=== PATIENT | female | born 1990 | race Caucasian/White ===

== ENCOUNTER 2021-11-13 13:44 | Outpatient (CLI) | payer BC, SELFPAY ==
--- NOTE | 2021-11-13 14:00 | CRLHL7_ITS ---
For Patients: As a result of the Century Cures Act, medical imaging exams and procedure reports are released immediately into your electronic medical record. You may view this report before your referring provider. If you have questions, please contact your health care provider. INDICATION: Evaluate anatomy. COMPARISON: 08.20.21 TECHNIQUE: Real time thomas scale imaging of the fetus was performed as well as color Doppler analysis of the umbilical vessels. FINDINGS: Sonographic imaging demonstrates a single living intrauterine gestation. Fetus demonstrates a regular cardiac rate of 135 beats per minute. Fetus has a variable position. The placenta lies left anterior/posterior without evidence of placenta previa. The edge of the placenta is located 9.0 cm from the internal cervical os. Amniotic fluid volume appears normal. Single deepest vertical pocket: 6.8 cm. The cervix is closed and measures 4.4 cm in length. The composite ultrasound gestational age is calculated at 22 weeks 1 day with an estimated sonographic due date of 03/18/2022. The estimated weight is 465 grams which lies at the 94th %. The following biometric measurements were obtained: Biparietal diameter: 5.4 cm/22 weeks 3 days 95th% Head circumference: 19.8 cm/22 weeks 0 days 86th% Abdominal circumference: 17.9 cm/22 weeks 6 days 93rd% Femur length: 3.5 cm/20 weeks 6 days 42nd% The HC/AC ratio measures: 1.11 range (1.05-1.23) On anatomic survey, there is a normal appearance of the cerebral ventricles, cavum septi pellucidi, cisterna magna and cerebellum. The nose, lips, and facial profile appear normal. The cervical, thoracic and lumbar spine are well visualized and appear normal. There is a normal four-chamber heart view and the left and right ventricular outflow tracts appear normal. The diaphragm and stomach appear normal. The kidneys and bladder also appear normal. There is a normal three-vessel cord and cord insertion site. The four extremities appear normal. IMPRESSION: Normal anatomic survey. Sonographic gestational age 22 weeks 1 day and sonographic due date of 03/18/2022. Sonographic age is 9 days ahead of the clinical age. Estimated weight 94th percentile. Abdominal circumference 93rd percentile. Dictated by Jorge Taylor MD @ 11/13/2021 3:31:12 PM (Electronically Signed)
== END 2021-11-13 13:45 | disposition home or self-care (01) ==
LOC: US 13:45
PROVIDERS: PCP Family Medicine; Visit Provider Advanced Practice Midwife
DX: Z34.92 Encounter for supervision of normal pregnancy, unspecified, second trimester (principal); Z3A.22 22 weeks gestation of pregnancy
CPT/HCPCS: 76805

== ENCOUNTER 2022-01-08 10:01 | Outpatient (CLI) | payer BC, SELFPAY ==
[2022-01-09 20:38] LABS: Rapid Plasma Reagin (RPR) Non Reactive (Non Reactive)
== END 2022-01-08 10:02 | disposition home or self-care (01) ==
PROVIDERS: PCP Family Medicine; Visit Provider Advanced Practice Midwife
DX: Z34.80 Encounter for supervision of other normal pregnancy, unspecified trimester (principal)
CPT/HCPCS: 86592

== ENCOUNTER 2022-02-24 14:00 | Outpatient (CLI) | payer MEDICAID, SELFPAY ==
[2022-02-24 15:02] LABS: Total Protein Urine 13 mg/dL
[2022-02-24 15:05] LABS: Creatinine Urine 31.9 mg/dL
[2022-02-24 16:37] LABS: Alanine Aminotransferase* 21 U/L (4-35); Aspartate Amino Transferase* 35 U/L (12-35); Blood Urea Nitrogen* 5 mg/dL (5-24); Creatinine* 0.5 mg/dL (0.5-1.5); Estimated Glomerular Filt Rate 128 ml/min; Uric Acid* 3.7 mg/dL (2.2-8.4)
[2022-02-25 12:16] LABS: Strep B DNA Probe NEGATIVE (Negative)
[2022-02-26 09:53] LABS: Strep B Pen/Amox Allergy No
== END 2022-02-24 14:01 | disposition home or self-care (01) ==
PROVIDERS: PCP Family Medicine; Visit Provider Advanced Practice Midwife
DX: O09.293 Supervision of pregnancy with other poor reproductive or obstetric history, third trimester (principal); Z87.51 Personal history of pre-term labor
CPT/HCPCS: 76816; 82565; 82570; 84156; 84450; 84460; 84520; 84550; 87081; 87653

== ENCOUNTER 2022-02-26 20:01 | Outpatient (CLI) | payer MEDICAID, SELFPAY | END 2022-02-26 20:02 | disposition home or self-care (01) | LOC: NFLDREF 03-08 14:52 | PROVIDERS: PCP Family Medicine; Visit Provider Advanced Practice Midwife | DX: O36.63X0 Maternal care for excessive fetal growth, third trimester, not applicable or unspecified (principal) | CPT/HCPCS: 84156 ==

== ENCOUNTER 2022-03-01 09:54 | Outpatient (CLI) | payer MEDICAID, SELFPAY ==
[2022-03-01] VITALS (15 sets, daily range): BP systolic 111–120; BP diastolic 56–61; PULSE 71–97; RESP 16; TEMP 37.2; O2SAT 98–99
[2022-03-01 11:30] LABS: Hematocrit 33.3 % (33.0-51.0); Hemoglobin* 11.1 gm/dL (12.0-16.0); Mean Corpuscular HGB Conc 33 gm/dL (32-36); Mean Corpuscular Hemoglobin 29 pg (26-34); Mean Corpuscular Volume 87 fL (80-100); Platelet Count* 183 K/uL (140-440); Red Blood Count 3.82 m/uL (4.00-5.20); White Blood Count* 7.56 K/uL (4.50-11.00)
[2022-03-01 11:45] LABS: Slide Review Reflex No
[2022-03-01 11:49] LABS: Aspartate Amino Transferase* 35 U/L (12-35); Creatinine* 0.4 mg/dL (0.5-1.5); Estimated Glomerular Filt Rate 135 ml/min
[2022-03-01 11:50] LABS: Total Protein Urine 9 mg/dL
[2022-03-01 11:50] LABS: Alanine Aminotransferase* 24 U/L (4-35); Blood Urea Nitrogen* 4 mg/dL (5-24)
[2022-03-01 11:51] LABS: Creatinine Urine 117.6 mg/dL
--- NOTE | 2022-03-03 16:54 | PC.OBNST ---
NST Note NST Note Start: 03/01/22 10:17 Freq: ONCE Status: Discharge Protocol: Document 03/01/22 16:50 MMB (Rec: 03/03/22 16:54 MMB [id number]) NST Note 4 Para (# of births) 3 EDC 03/27/22 Gestational Age In Weeks & Days 36 Weeks & 4 Days High Risk Factors History of Labor/ Delivery Patient Presented with Complaint(s) of Headache,Other Other Complaints Right upper quadrant pain Reactive Yes Appropriate for Gestational Age Yes RN Candice Grande RN Date 03/01/22 Reactive Yes Appropriate for Gestational Age Yes GEOVANY Morris RN Date 03/01/22 OB NST charge Yes Complete NST Note via Write Note Yes The provider's electronic signature indicates the NST is reactive/appropriate for gestational age. *Note to provider: If an addendum is required, open the patient's chart and click on the note under the Nurse/Allied Health tab.
== END 2022-03-01 12:35 | disposition home or self-care (01) ==
LOC: OB OUT 09:55 → OB 09:56
PROVIDERS: PCP Family Medicine; Visit Provider Advanced Practice Midwife
DX: Z34.93 Encounter for supervision of normal pregnancy, unspecified, third trimester (principal)
CPT/HCPCS: 36415; 59025; 82565; 82570; 84156; 84450; 84460; 84520; 85027; 99213

== ENCOUNTER 2022-03-22 07:00 | Inpatient (IN) | payer OTHER, SELFPAY ==
[2022-03-22] VITALS (10 sets, daily range): BP systolic 111–131; BP diastolic 56–65; PULSE 62–97; RESP 16–18; TEMP 36.6–37.1; BMI 33.1
[2022-03-22 08:16] LABS: SARS PCR* Negative SARS-CoV-2 (Negative)
--- NOTE | 2022-03-22 08:36 | P.LDBA_ITS ---
Subjective History of Present Illness Time Seen by Provider: 08:38 Date Seen: 03/22/22 Narrative: Nathalia is being admitted to Labor and Delivery for IOL r/t hx of vacuum delivery of 7lb 8oz baby and current suspected macrosomia, EFW 97%ile at 36w. She is a 31 year old at 39 2/7 weeks gestation. Her full history and physical was dictated by Renay Yanes CNM on 03/05/22. Please see this for details. Nathalia is supported by her Can. Nathalia had epidurals with her last 3 births, but reports that they did not work well. She is planning for a waterbirth, but open to an epidural if needed. Discussed having a safe word that Can will know in case she would like to have the epidural at some point. Encouraged ambulation, position changes, and labor warm up to promote optimal positioning and physiologic labor and . Discussed options for cervidil or cytotec induction, pt agreeable to cytotec. Questions elicited and answered to pt satisfaction. OB Problem List: Blood type: O positive [facility]. History of IUGR and HELLP 1st Baseline pre E labs: All normal, pr/cr ratio: .24 81 mg aspirin starting at 12 weeks 2. History of vacuum assisted vaginal delivery 3rd . 7 lb 8 oz. Baby stuck and heart deceleration (Other babies 3 lb & 6 lbs) 3. History of at 35 weeks w/ 1st baby 4. 20 week Anatomy scan - 94%ile 36 wk growth ordered: EFW over 97%. 7 lb 11 oz Consider 39 week IOL (See 30 week note) COVID: declines FLU: declines 01/08/2022. Tdap: OB - H&P: Exam Physical Exam: Vital signs: Temp Pulse Resp BP 98 F 75 16 121/56 L 03/22/22 07:20 03/22/22 07:20 03/22/22 07:20 03/22/22 07:20 Narrative: VSS, afebrile General Appearance:? Calm, cooperative. ?No acute distress. ? Psychiatric Exam: Alert and oriented, appropriate affect Abdomen: Gravid Ctx: Irregular. Mild FHTs: ?Baseline: 125 ? Variability: Moderate ? Accels: Present ? ?Decels: ?Absent SVE: 1cm/50%/-3 Membranes: Intact? ? Constitutional: Constitutional: no acute distress Routine HEENT Exam: Head: Present normocephalic Eye: Present normal appearance Routine Neck Exam: Neck: Present full ROM Routine Respiratory Exam: Respiratory: Present CTA bilaterally Routine Cardiovascular Exam: Cardiovascular: RRR Routine Exam: External: Present normal external exam Perineum Description: Normal Detailed Labor and Delivery Exam: Patient Gravid: yes Tachysystole: No Routine Back/Spine/Pelvis Exam: Back/Spine: full ROM Routine Skin Exam: Present intact, dry and warm Routine Neurological Exam: Present alert and oriented X3 Routine Psychiatric Exam: Present normal affect and normal thought process OB - Problem Based A/P Additional Plan (1) Encounter for supervision of other normal , third trimester: Status: Acute (2) History of pre-eclampsia in prior , currently in third trimester: Status: Acute (3) Large for dates fetus affecting , antepartum: Status: Acute (4) History of HELLP syndrome, currently : Status: Acute Plan ASSESSMENT:? 31 at 39 2/7 weeks gestation? complicated by:?History of , History of vacuum assisted delivery, EFW 97%ile @ 36w Labor type: IOL, not in labor? Category 1 FHR pattern.??Baseline 125, Variability: Moderate, Accels: Present, Decels: Absent SVE: 1/50%/-3 GBS negative ? ?? PLAN:? 1. IOL per Cytotec protocol 2. Monitoring per cytotec policy, Continuous? 3. Planning unmedicated . Desires water . Consent signed. Hep C negative. Candidate for analgesia of choice.?? 4. Patient encouraged to reposition and ambulate to promote physiologic labor and .? 5. Anticipate progress to active labor and ? ? Delivery/Labor/Induction Plan Plan: induction Induction method: per misoprostol protocol
[2022-03-22] MEDS: miSOPROStoL 25 MCG/0.25 TABLET VAGINAL ×2 (08:59→13:17)
--- NOTE | 2022-03-22 17:14 | PM.OBPNL ---
Subjective Time Seen by Provider: 17:14 Date Seen: 03/22/22 Narrative: Subjective:? Nathalia is coping well with labor pain/contractions. She is currently being supported by her Can.?Denies concerns at this time, but would like to get things moving if possible. Questions answered to her satisfaction. ?She would like to continue with position changes for comfort and pain management, and plans to get into the tub when labor is more active.?? ? Objective Exam: Objective: VSS, afebrile General Appearance:?Calm, cooperative. ?No acute distress. ? Psychiatric Exam: Alert and oriented, appropriate affect Abdomen: Gravid Ctx: ?Q 2-3 min apart. Moderate FHTs: ?Baseline: 135? Variability: Moderate ? Accels: Present ? ?Decels: ?Absent SVE: 2 cm/50%/-3 Membranes: Intact? Vital Signs: Last Vital Signs Temp 98.1 F 03/22/22 13:03 Pulse 64 03/22/22 16:59 Resp 16 03/22/22 13:03 BP 119/56 L 03/22/22 16:59 Plan Plan: Assessment:?? Age at 39w 2d gestation?? Patient is coping well with challenges of labor.?? Labor type: Induced, Early labor? Category 1 FHR pattern.?? complicated by: History of History of vacuum assisted delivery EFW 97%ile @ 36w Labor complicated by: Plan:?? Continue IOL, pitocin protocol?? Patient encouraged to change positions to promote physiologic labor and .?? Candidate for analgesia of choice. Nonpharmacologic comfort measures per patient preference. Patient plans for waterbirth? Monitoring: continuous per protocol IV start per protocol Anticipate progress to active labor and NVD. ?
[2022-03-22 17:50] LABS: Basophils Absolute Auto 0.04 K/uL (0.00-0.30); Basophils Percent Auto 0.4 % (0.0-3.0); Eosinophils Absolute Auto 0.08 K/uL (0.00-0.50); Eosinophils Percent Auto 0.9 % (0.0-7.0); Hematocrit 33.9 % (33.0-51.0); Hemoglobin* 11.2 gm/dL (12.0-16.0); Immature Granulocytes Abs Auto 0.01 K/uL (0.00-0.30); Immature Granulocytes Pct Auto 0.1 %; Lymphocytes Absolute Auto 1.86 K/uL (0.90-2.90); Lymphocytes Percent Auto 20.6 % (20-44); Mean Corpuscular HGB Conc 33 gm/dL (32-36); Mean Corpuscular Hemoglobin 29 pg (26-34); Mean Corpuscular Volume 87 fL (80-100); Monocytes Percent Auto 7.7 % (0.0-11.0); Neutrophils Absolute Auto 6.36 K/uL (1.7-7.0); Neutrophils Percent Auto 70.3 % (42.0-72.0); Platelet Count* 205 K/uL (140-440); RDW Coefficient of Variation % 13.4 % (11.5-15.5); Red Blood Count 3.89 m/uL (4.00-5.20); White Blood Count* 9.05 K/uL (4.50-11.00)
[2022-03-22] MEDS: LACTATED RINGERS 1000 ML 1,000 ML 125 ML IV ×2 (17:52→21:41)
[2022-03-22 18:00] LABS: Slide Review Reflex No
[2022-03-22] MEDS: OXYTOCIN 30 unit/500 ML in NS 30 UNIT/500 ML BAG IVPB (19:46)
[2022-03-23] VITALS (77 sets, daily range): BP systolic 88–179; BP diastolic 50–126; PULSE 60–113; RESP 16–20; TEMP 36.3–37.6; O2SAT 86–100
[2022-03-23] MEDS: fentaNYL 100 MCG/2 ML inj IVP (01:52)
[2022-03-23] MEDS: LACTATED RINGERS 1000 ML 1,000 ML 1125 ML IV ×2 (02:21→05:43)
[2022-03-23] MEDS: fentaNYL 250 MCG/5 ML inj 100 MCG EPIDURAL (04:15)
[2022-03-23] MEDS: ROPIVACAINE 0.2% 100 ml 100 ML 12 MG EPIDURAL (04:18)
[2022-03-23] MEDS: LIDOCAINE 2% (PF) 5 ML VIAL EPIDURAL (04:18)
--- NOTE | 2022-03-23 04:29 | PM.ANBPRC ---
[facility] Medical History (Updated 03/22/22 @ 08:59 by Sharon Mae CNM) History of migraine Vaginal delivery Surgical History (Updated 03/22/22 @ 08:53 by Sharon Mae CNM) History of tonsillectomy (1994) History of vacuum extraction assisted delivery Family History (Updated 10/09/21 @ 10:27 by Domingo Montiel) Family/Other Breast cancer Social History (Updated 10/09/21 @ 10:28 by Domingo Montiel) Narrative: , 3 kids, Daycare provider Non-smoker Social EtOH Smoking Status: Never smoker Meds Home Medications and Allergies Home Medications Medication Instructions Recorded Confirmed Type aspirin 81 mg tablet,delayed 81 mg PO QDAY 10/16/21 03/22/22 History release prenat.vits,klaus,kum-xkvk-mtcxh 1 tab PO QDAY 10/16/21 03/22/22 History loratadine 10 mg capsule 10 mg PO PRN 02/19/22 03/19/22 History Allergies Allergy/AdvReac Type Severity Reaction Status Date / Time No Known Drug Allergies Allergy Verified 03/22/22 14:17 Results Labs Labs: Laboratory Results - last 24 hr 03/22/22 03/22/22 03/22/22 07:42 17:42 17:42 WBC 9.05 RBC 3.89 L Hgb 11.2 L Hct 33.9 MCV 87 MCH 29 MCHC 33 RDW Coeff of Kamille 13.4 Plt Count 205 Neut % (Auto) 70.3 Lymph % (Auto) 20.6 Walton % (Auto) 7.7 Eos % (Auto) 0.9 Baso % (Auto) 0.4 Neut # (Auto) 6.36 Lymph # (Auto) 1.86 Walton # (Auto) 0.70 Eos # (Auto) 0.08 Baso # (Auto) 0.04 SARS-CoV-2 (PCR) Negative SARS-CoV-2 Blood Type O Positive Antibody Screen NEGATIVE Vital Signs Vital Signs: Last Vital Signs Temp 98.1 F 03/23/22 00:26 Pulse 83 03/23/22 04:25 Resp 16 03/23/22 00:26 BP 117/58 L 03/23/22 04:25 Pulse Ox 100 03/23/22 04:28 Weight: 91.762 kg Height: 166.37 cm Anesthesia Procedures Epidural Insertion Patient Location: OB Start Time: :30 Stop Time: 04:30 Start Date: 03/23/22 Stop Date: 03/23/22 Reason for Block: primary anesthetic Patient Position: sitting Performed By: Matheus Collier Preanesthetic Checklist: IV checked, risks and benefits discussed, surgical consent, monitors and equipment checked, pre-op evaluation, timeout performed and anesthesia consent Prep: chlorhexidine gluconate Monitoring: blood pressure monitoring, quality assurance monitor chassis, continuous pulse oximetry and heart rate Approach: midline Vertebral Space: lumbar (1-5) Needle Type: Tuohy needle Injection Technique: continuous catheter Needle gauge: 17 Needle Length (cm): 10 cm Needle Insertion Depth (cm): 6 Catheter Gauge: 19 Catheter Type: multi-orifice Catheter at skin depth (cm): 12 Test Dose Result: negative and lidocaine 1.5% with epinephrine 1 to 200,000 Events: other
--- NOTE | 2022-03-23 04:44 | PM.OBPNL ---
Subjective Time Seen by Provider: 03:00 Date Seen: 03/23/22 Narrative: Called to room to discuss epidural per pt request. Nathalia not coping well with contractions, crying and having trouble slowing her breathing during contractions, stating they are too much and she can not get any rest between. Discussed option for epidural, position changes and getting in the big tub. Pt agreeable to trying the big tub with the plan that if that is not sufficient, she will opt for an epidural. Nathalia labored in the tub for about 30 minutes, but ultimately decided it was not enough relief. Anesthesia called for epidural placement. Discussed option for AROM or pitocin to encourage contractions, but given the fact that she needed the epidural to rest, agreed on pitocin since it can be turned off if needed. Questions elicited and answered to pt's satisfaction. Nathalia now resting comfortably with epidural with Can supportive at bedside. Objective Exam: VSS, afebrile General Appearance:? Crying, labord breathing with contractions, not fully relaxing between contractions? Psychiatric Exam: Alert and oriented, appropriate affect Abdomen: Gravid Ctx: ?Q 2-3 min apart. Strong FHTs: ?Baseline: 125? Variability: Moderate ? Accels: Present ? ?Decels: ?absent SVE: 4.5cm/70%/-2 per RN Membranes: Intact? Pitocin @?off ?? Vital Signs: Last Vital Signs Temp 98.1 F 03/23/22 03:54 Pulse 73 03/23/22 04:43 Resp 20 03/23/22 03:54 BP 124/58 L 03/23/22 04:43 Pulse Ox 100 03/23/22 04:38 Plan Plan: Assessment:?? Age at 39w 3d gestation?? Patient not coping well with challenges of labor.?? Labor type: Induced, Early labor? Category 1 FHR pattern.?? complicated by: History of History of vacuum assisted delivery EFW 97%ile @ 36w Plan:?? Continue IOL, pitocin protocol Epidural for pain control per pt preference Continue to monitor closely for tachysystole, if contractions <q2 min, d/c pitocin Monitoring: continuous per protocol Patient encouraged to change positions to promote physiologic labor and .?? Encouraged rest with epidural Reassess progress and plan with oncoming CNM Anticipate progress to active labor and NVD.
[2022-03-23] MEDS: CEFAZOLIN 2 GM in 0.9 % SODIUM CHLORIDE Mini-bag 100 ML IVPB (07:40)
[2022-03-23 07:50] LABS: Basophils Percent Auto 0.5 % (0.0-3.0); Eosinophils Percent Auto 0.3 % (0.0-7.0); Hematocrit 33.6 % (33.0-51.0); Hemoglobin* 11.1 gm/dL (12.0-16.0); Immature Granulocytes Pct Auto 0.2 %; Lymphocytes Percent Auto 14.4 % (20-44); Mean Corpuscular HGB Conc 33 gm/dL (32-36); Mean Corpuscular Hemoglobin 29 pg (26-34); Mean Corpuscular Volume 87 fL (80-100); Monocytes Percent Auto 8.3 % (0.0-11.0); Neutrophils Percent Auto 76.3 % (42.0-72.0); Platelet Count* 195 K/uL (140-440); RDW Coefficient of Variation % 13.3 % (11.5-15.5); Red Blood Count 3.85 m/uL (4.00-5.20); White Blood Count* 11.41 K/uL (4.50-11.00)
[2022-03-23 08:00] LABS: Slide Review Reflex No
--- NOTE | 2022-03-23 08:23 | PM.OBPNL ---
Subjective Date Seen: 03/23/22 Narrative: Pt was resting comfortably with an epidural at change of provider. She was feeling some pressure with contractions. Discussed AROM vs expectant management. She choose AROM. Baby was well applied to the cervix but was at a -2 station. AROM at 0720 with a moderate amount of clear fluid. Baby tolerated AROM. At 0724 FHT were hear to by in the 70's. Pt moved to hands and knee position. A FSE was placed at 0727 and position changed to right lateral at 0728. She was noted to be complete at -[address] Gtz was notified at that time and was on her way in to the hospital. FHT continued to be in the 60-80's with an occasional momentary jump to the 100's. A code alice was called at 0732. She was transferred on the bed to the OR at 0735. In the OR FHT had recovered to the 111-120's with decelerations heard. While waiting for the OB to arrive she did attempt to push and was able to move the baby. However baby was noted to be OP with space anteriorly to the head and did have some decelerations with pushing. Dr. Worthington was in the clinic and came over when the code alice was called and took over care for the . Objective Vital Signs: Last Vital Signs Temp 99.7 F H 03/23/22 05:45 Pulse 100 03/23/22 07:29 Resp 20 03/23/22 03:54 BP 106/62 03/23/22 07:29 Pulse Ox 86 L 03/23/22 07:31 Contractions Monitor mode: External Contraction pattern: Regular Contraction intensity: Strong/Firm Assessment Station: -1 Amniotic Membrane Status: AROM Status: Category ll
--- NOTE | 2022-03-23 08:27 | P.PCN_ITS ---
Procedure Note Time Seen by Provider: 08:27 Date Seen: 03/23/22 Date of procedure: 03/23/22 Will [facility] bill your pro fee for this procedure?: Yes Procedure: Preoperative diagnosis: 31-year-old 4 para 3003 now 4 at 39 and 3/ we eks * bradycardia * Recurrent late decelerations in the heart rate Postoperative diagnosis: Same Procedure: Urgent Primary low-transverse section Anesthesia: Epidural Surgeon: Kayla Worthington MD Tinning Machine Set Up Operator: Priya Gtz MD Quantitative blood loss: Pending at the time of this note IV Fluid: Pending at the time of this note UOP: Pending at the time of this note. Specimen: Placenta Drain(s): Delgado to gravity Indications: 31-year-old 4 para 3 admitted on 03/22/2022 for an induction of labor for suspected macrosomia. Artificial rupture of membranes occurred at 7:15 a.m. there was a bradycardia for 8 minutes to the 80s-90 and a code white, emergency was called. I met the patient in the operating room and noted that the heart rate had moderate variability without accelerations, baseline 120 with late decelerations to the 90s. The heart rate was reassuring enough to use her epidural for anesthesia. Verbal consent obtained for an urgent low transverse section. Findings: A live male was delivered from the direct OP position at 7:55 a.m. Apgars were 8 at 1 min and 9 at 5 min, respectively. Infant weight: 8 lb 7 oz. Nuchal cord(s): Yes: Single nuchal cord easily reduced at the surgical field prior to delivery the 's shoulders. The placenta was delivered spontaneously and complete at 7:57 a.m.. Amniotic fluid: Clear. Normal uterus, fallopian tubes and ovaries were noted. Uterine atony was noted after delivery of the treated with uterine massage, 40 units Pitocin in 1 L lactated Ringer's wide open, 2 doses Methergine IM and rectal Cytotec given at the end of the procedure. Procedure: Nathalia was taken to the OR where epidural anesthetic was found be adequate. A Delgado catheter was in place. The patient was then placed in the dorsal supine position with a leftward tilt. She was then prepped and draped in a normal sterile manner. A Pfannenstiel skin incision was made and carried through sharply to the underlying layer of fascia. Fascia was incised in the midline and this incision carried laterally with Mccallum scissors. The superior aspect of fascial incision was grasped with Alicia clamps, tented up, and the rectus muscles dissected off with blunt dissection.. The inferior aspect of the fascial incision was grasped with Alicia clamps, tented up and again the rectus muscles dissected off with a combination of blunt and sharp dissection. The rectus muscles were in the midline. The peritoneum was entered bluntly. This opening was extended bluntly. An Aurelio-O self-retaining retractor was placed. A bladder flap was not created. Uterus was incised in a low transverse manner in the midline. This incision carried laterally with blunt pressure on the inferior and superior aspects of the uterine incision. The amniotic sac was ruptured. The 's head and body was delivered atraumatically. The umbilical cord was clamped and cut i mmediately and a portion of the cord clamped and removed if cord blood needed for cord gases. The infant was shown to the patient and her support person and then handed to waiting pediatric and nursing staff. The placenta was delivered spontaneously. The uterus was cleared of clots and debris. The uterine incision was re-approximated with the uterus in vivo. The 1st layer using 0-Vicryl in a running, locked manner. The 2nd layer using 0-Monocryl in a running, vertical, imbricating layer. Additional sutures needed for hemostasis: Yes: 1 figure of 8 suture using 0 Vicryl was placed at the left apex where there was uterine blood vessel bleeding and a small extension of the left apex inferiorly toward the cervix. Three figure of 8 sutures using 2-0 chromic were placed. Sidney was applied to the uterine incision. Excellent hemostasis was verified. The Aurelio retractor was removed. The rectus muscles were not reapproximated. The peritoneum was repaired using 3 0 Vicryl in a running manner. The rectus muscles were then closely inspected to verify hemostasis. Hemostasis was obtained with bipolar cautery. The fascia was then re-approximated using 0-Maxon loop in a running manner. The subcutaneous tissue was then irrigated with saline and hemostasis obtained with bipolar cautery. The subcutaneous tissue was re-approximated using 3-0 plain gut in a running manner. The skin was reapproximated using 4-0 Monocryl in a running subcuticular manner. Exofin skin adhesive and a Methaplex dressing were applied. The patient tolerated this procedure well. Sponge, lap and instrument counts were correct x2 active to the procedure. Patient was taken to the recovery area in stable condition. The patient received 2 g of IV Ancef prior to skin incision. 500 mg IV azithromycin was started during the procedure. Surgeon: Kayla Worthington MD
[2022-03-23] MEDS: AZITHROMYCIN 500 MG in 0.9 % SODIUM CHLORIDE 250 ml 250 ML 255 MG IVPB (08:38)
[2022-03-23] MEDS: miSOPROStoL 800 MCG/4 TABLET PR (08:43)
--- NOTE | 2022-03-23 09:17 | W.PM.NB ---
Nerve Block Nerve Block Time Seen by Provider: 08:40 Date Seen: 03/23/22 Type of block requested by surgeon for post-operative analgesia: TAP Side: bilateral Time out performed: Yes Verification of patient name: Yes Verification of date of : Yes Name of person performing procedure: IVETT Oh Continuous monitoring Was continuous monitoring of O2 sat, B/P, cooky machine operator, recorded every 15 minutes?: Yes Procedure Checklist: sterile prep, needles and gloves Ultrasound guided. Images saved: Yes Medications given in 5ml increments after negative aspiration: Marcaine (30 total) %: 0.25 mL: 15 Needle gauge: 20 and Exparel (10 Total) mL: 5 Needle gauge: 20 Patient tolerated procedure well: Yes Block Charges Block Charge (with Pro Fee): TAP Bilateral Use of Ultrasound Machine for Block: Yes- US Guidance/pain block
--- NOTE | 2022-03-23 12:32 | W.ANESCHARGE ---
Anesthesia Charges Start Date/Time Anesthesia Start Date: 03/23/22 Anesthesia Start Time: 07:34 Stop Date/Time Anesthesia Stop Date: 03/23/22 Anesthesia Stop Time: 08:59 Summary Emergency: Yes
[2022-03-23] MEDS: KETOROLAC 30 MG/ML inj IVP ×2 (14:35→20:16)
[2022-03-23] MEDS: LACTATED RINGERS 1000 ML 1,000 ML 125 ML IV (17:15)
[2022-03-23] MEDS: ACETAMINOPHEN 500 MG TABLET 1000 MG PO ×2 (18:35→23:54)
[2022-03-24] MEDS: KETOROLAC 30 MG/ML inj IVP ×4 (02:53→21:05)
[2022-03-24 02:56] VITALS: BP 92/58; PULSE 78; RESP 16; TEMP 36.7; O2SAT 97
[2022-03-24 07:12] LABS: Hemoglobin* 8.6 gm/dL (12.0-16.0)
[2022-03-24 07:40] VITALS: RESP 16; O2SAT 97
[2022-03-24 07:41] VITALS: BP 107/69; PULSE 77; RESP 16; TEMP 36.6; O2SAT 97
--- NOTE | 2022-03-24 08:19 | PM.OBPNCS1 ---
OB - PN: A/P Assessment and Plan (1) Status post delivery: Status: Acute (2) Lactating mother: Status: Acute (3) Acute anemia: Status: Acute Plan Assessment/Plan G 4 P 4 status post urgent uncomplicated primary . Lactating Mother Acute Anemia 1. ?Continue routine PP cares 2. ?. ?May see if desired 3. ?Anticipate discharge home tomorrow or the following day per pt preference 4. ?Acute anemia. ?Iron supplement ordered Plan day: 1 Plan: routine postop care OB - PN: Subj Subjective Time Seen by Provider: 08:19 Date Seen: 03/24/22 Interval history: Subjective: Nathalia is a 31 y.o. G4 now P4 who was admitted to [facility] for IOL. ?She had an uncomplicated urgent . ? The patient feels well. ?The pain is well controlled with current medications. ?She has no new complaints. ?She is breast feeding and reports things are going well.? the patient has done well.? Vitals have been stable.? She has remained afebrile.? Has a good appetite, is tolerating a general diet. ?She is voiding without difficulty.? She is passing gas and has not had a bowel movement.? She is ambulating and denies any dizziness.? Has Small amount of rubra lochia.?? Patient comments: no complaints, pain well controlled and tolerating diet infant status: and doing well Keldron feeding status: exclusively OB - PN: Obj Exam Physical Exam: Vital signs: Temp Pulse Resp BP Pulse Ox O2 Del Method 97.8 F 77 16 107/69 97 03/24/22 07:41 03/24/22 07:41 03/24/22 07:41 03/24/22 07:41 03/24/22 07:41 03/24/22 07:41 Narrative: VSS. ?Afebrile GENERAL APPEARANCE: normal affect, alert, no distress MOOD: ?appropriate HEENT: normocephalic, neck supple, full ROM CHEST: ?Symmetrical chest wall movement. ?Normal respiratory effort. ?Clear to auscultation HEART: ?regular rate and rhythm ABDOMEN: ?soft, non-tender. Uterine fundus is WNL and is appropriate for the stage of recovery per RN.?Bowel sounds present. EXTREMITIES: ?normal and no edema SKIN: warm, dry. ?Dressing on, clean/dry/intact. ?No signs of infection noted. Urinary Catheter Management: Urethral: Cath placed during this visit: yes, but has since been removed by the nurse Reason for continuing: surgical procedure Removal date: 03/24/22 Removal time: 07:50 OB - PN: Obj Data Labs Labs: Laboratory Results - last 24 hr 03/24/22 07:01 Hgb 8.6 L
[2022-03-24 08:40] VITALS: RESP 16
[2022-03-24] MEDS: FERROUS SULFATE 325 MG TABLET PO (09:09)
[2022-03-24] MEDS: DOCUSATE SODIUM 100 MG CAPSULE PO (09:09)
[2022-03-24 15:54] VITALS: BP 110/69; PULSE 75; RESP 16; TEMP 36.8; O2SAT 97
[2022-03-25] MEDS: ACETAMINOPHEN 500 MG TABLET 1000 MG PO ×2 (00:01→07:11)
[2022-03-25 00:04] VITALS: BP 118/72; PULSE 75; RESP 16; TEMP 36.4; O2SAT 97
[2022-03-25] MEDS: IBUPROFEN 600 MG TABLET PO ×2 (03:02→08:59)
[2022-03-25] MEDS: DOCUSATE SODIUM 100 MG CAPSULE PO (07:11)
[2022-03-25] MEDS: FERROUS SULFATE 325 MG TABLET PO (07:11)
--- NOTE | 2022-03-25 07:43 | P.DS_ITS ---
DS: Providers Provider Date Seen: 03/25/22 Date of admission: 03/22/22 07:00 Primary care physician: Jorge Sierra MD Admitting Clinician: Sharon Mae CNM Attending Physician on discharge: Karly Yanes CNM Date of Discharge: 03/25/22 DS: Diagnosis Discharge Diagnosis (1) Status post delivery: Status: Acute (2) Lactating mother: Status: Acute (3) Acute anemia: Status: Acute Exam Narrative: Exam Narrative: GENERAL APPEARANCE:? normal affect, alert, no distress? MOOD:? appropriate? CHEST:? clear to auscultation and percussion? HEART:? regular rate and rhythm? ABDOMEN:? soft, slightly tender with palpation, the uterine fundus is 2 cm Below Umbilicus, Midline and is appropriate for the stage of recovery.?Incision is well approximated without edema, redness, bruising or drainage. Small amount of lochia. PERINEUM:? exam deferred EXTREMITIES:? normal and no edema? Discharge Criteria? Patient has no complaints? No active bleeding?? She is requesting discharge home.? Const: Vital Signs, click to edit/add: Vital Signs - 24 hr 03/24/22 08:40 03/24/22 15:54 03/25/22 00:04 Temperature 98.2 F 97.5 F L Pulse Rate [Pulse Oximeter] 75 75 Respiratory Rate 16 16 16 Blood Pressure [Ri ght Arm] 110/69 118/72 Pulse Oximetry 97 97 Oxygen Delivery Me thod Room Air Room Air OB - DS: Summary Hospital Course Hospital Course: The patient is a 31 year old G 4 now P 4 at 39.3 weeks gestation that was admitted to the Center on 03/22/22 for IOL for suspected macrosomia and a history of a vacuum assisted delivery. She had an uncomplicated delivery after intolerance to labor. She delivered a viable male . She is breast feeding but baby is having a difficult time latching. She is pumping and supplementing with formula and this is going well. the patient has done well. Her pain is well controlled with current medications.? She has no new complaints.? Vitals have been stable. She has remained afebrile. She is voiding without difficulty. She is passing gas and has not had a bowel movement. She has a low hemoglobin and is on PO iron supplementation, but is ambulating well and denies any dizziness. She is planning mini pill for postpar enrrique control.? Peripartum Data Procedures: Procedures Operation Date: 03/23/22 08:00 Actual Procedure Side Surgeon p Section Kayla Worthington MD complications: none Infant Gender: Male Discharge Plan: Home Status at Discharge Functional status at discharge: independent ambulation Overall status at discharge: patient is progressing back to baseline Time Spent with Patient Time attestation: Total time spent providing and/or coordinating discharge services: Discharge Plan Discharge Disposition: Home, Self-Care Date of Admission: 03/22/22 07:00 Attending Provider on Discharge: Karly Yanes Primary Care Provider: Jorge Sierra Condition: Stable Anticipated Discharge Date/Time: 03/25/22 12:30 Discharge Medications: New ferrous sulfate 325 mg (65 mg iron) Tablet 325 mg PO DAILYWM Qty: 100 0RF docusate sodium 100 mg Capsule 100 mg PO BID PRN (Reason: constipation) Qty: 100 0RF ibuprofen 600 mg Tablet 600 mg PO Q6H PRN (Reason: Pain) Qty: 30 0RF oxycodone 5 mg Tablet 5 mg PO 3XD PRN (Reason: pain) Qty: 21 0RF Continued loratadine 10 mg capsule 10 mg PO DAILY PRN prenat.vits,klaus,kxo-myrw-tmtji Tablet 1 tab PO QDAY Discontinued aspirin 81 mg tablet,delayed release (DR/EC) 81 mg PO QDAY Discharge Orders: Discharge Order (Routine); Ordered 03/25/22 Ordered By: Karly Yanes Patient Education: (DC) Additional Instructions: Discharge instructions were reviewed with the patient including signs and symptoms of infection and home going medications ACTIVITY RESTRICTIONS Lifting Restrictions: 20 pounds for 6 weeks. Do not submerge incision under water X 2 weeks. ? Nothing vaginally for 6 weeks: no tampons or intercourse. Do not drive while taking narcotic pain medication(s) No strenuous or core exercises x 6 weeks. Off Work or School for 8 weeks There is no restriction for walking or walking up/down stairs. Symptoms to report to doctor: * Bleeding that saturates more than one pad per hour * Passing clots larger than the size of a golf ball * Pain not relieved by prescribed medication * Fever above 100.4 degrees Fahrenheit * A foul vaginal odor * Difficulty in emotions, mood, and functions * Thoughts of hurting yourself and/or * Painful, reddened area in your breast * Any drainage, redness, or tenderness in your IV/epidural site * Severe headache that doesn't improve after taking medications * Changes in vision, including temporary loss of vision, blurred vision, and/or light sensitivity * Upper abdominal pain (usually under ribs on the right side) * Decrease in urination or painful, frequent urinating * Chest pain * Shortness of breath * Tenderness or pain with redness and/swelling in the calf(s) of your leg(s). FOLLOW-UP APPOINTMENTS Optional 2-week visit: incision check, discuss infant feeding concer ns, review control options and screen for anxiety/depression. 6-week visit for an annual exam. consultation services are available to all mothers and babies for the first year after delivery.? To make an appointment, please call [phone]. Discharge Diet: Regular Follow Up Appointments: [facility] [Provider Group] Jorge Sierra MD [Primary Care Provider] - Forms: [employer] Data Info Instructions
[2022-03-25 09:00] VITALS: BP 125/72; PULSE 80; RESP 18; TEMP 36.6; O2SAT 100
--- NOTE | 2022-04-15 08:25 | W.PM.NB ---
Nerve Block Nerve Block Time Seen by Provider: 08:21 Date Seen: 04/15/22 Type of block requested by surgeon for post-operative analgesia: TAP Side: bilateral Time out performed: Yes Verification of patient name: Yes Verification of date of : Yes Site marking: site marked Name of person performing procedure: Sal Continuous monitoring Was continuous monitoring of O2 sat, B/P, automotive consultant, recorded every 15 minutes?: Yes Procedure Checklist: sterile prep, needles and gloves Ultrasound guided. Images saved: Yes Medications given in 5ml increments after negative aspiration: Marcaine %: 0.25 mL: 30 Needle gauge: 20 and Exparel mL: 10 Patient tolerated procedure well: Yes Additional comments: Needle noted adjacent to nerve Block Charges Block Charge (with Pro Fee): TAP Bilateral Use of Ultrasound Machine for Block: Yes- US Guidance/pain block
== END 2022-03-25 12:41 | disposition home or self-care (01) | DRG 540 ==
PROVIDERS: Obstetrics & Gynecology; Admitting Provider Advanced Practice Midwife; PCP Family Medicine; Visit Provider Advanced Practice Midwife
PROC: 10D00Z1 Extraction of Products of Conception, Low, Open Approach (ICD-10-PCS; CPT 59514; principal; 2022-03-23 07:45)
DX: O36.63X0 Maternal care for excessive fetal growth, third trimester, not applicable or unspecified (principal); O76 Abnormality in fetal heart rate and rhythm complicating labor and delivery; Z3A.39 39 weeks gestation of pregnancy; O90.81 Anemia of the puerperium; D62 Acute posthemorrhagic anemia; Z37.0 Single live birth
CPT/HCPCS: 01967; 01968; 36415; 59200; 64488; 76942; 85018; 85025; 86850; 86900; 86901; 87635; 88307; 94761; 99140; A9270; C9290; J0456; J0690; J1885; J2274; J2370; J2405; J2590; J2795; J3010; J3490; J7050; J7120

== ENCOUNTER 2024-05-31 09:46 | Outpatient (CLI) | payer OTHER, SELFPAY | END 2024-05-31 09:47 | disposition home or self-care (01) | PROVIDERS: PCP Family Medicine; Visit Provider Family Medicine | DX: Z13.228 Encounter for screening for other metabolic disorders (principal); Z13.220 Encounter for screening for lipoid disorders; Z13.0 Encounter for screening for diseases of the blood and blood-forming organs and certain disorders involving the immune mechanism | CPT/HCPCS: 80048; 80061; 85025 ==

== ENCOUNTER 2024-08-21 16:07 | Outpatient (CLI) | payer OTHER, SELFPAY | END 2024-08-21 16:08 | disposition home or self-care (01) | LOC: FBOREF 16:08 | PROVIDERS: PCP Family Medicine; Visit Provider Family Medicine | DX: E66.09 Other obesity due to excess calories (principal) | CPT/HCPCS: 84443 ==